=== PATIENT | female | born 1960 ===

== ENCOUNTER → 2021-01-04 13:58 | Outpatient (CLI) | payer OTHER, SELFPAY ==
--- NOTE | ~2021-01-04 | XR_ITS ---
XR lumbar spine min 4V DATE: 01/04/2021 14:35 INDICATION: Low back pain, sciatica. TECHNIQUE: AP AP, lateral, coned lateral lumbosacral views COMPARISON: None FINDINGS: There are bilateral pedicle rods and Steffee plates at L4-5, with interbody spinal fusion a t this level. Transitional fifth lumbar vertebra with sacralization and pseudoarthrosis on the right. There is severe degenerative disc disease at L2-3 and L3-4. There is associated L2-3 retrolisthesis. Diffuse osteopenia. No fracture or bone destruction of the lumbar spine is evident. The lumbar pedicl es appear intact. There is mild levoscoliosis. The sacroiliac joints are intact. IMPRESSION: Posterior and interbody spinal fusion at L4-5 Transitional L5 vertebra with sacralization pseudoarthrosis on the right Severe degenerative disc disease at L2-3 and L3-4 with associated retrolisthesis at L2-3 Levoscoliosis Osteopenia Reviewed, dictated and finalized at location B. IMPRESSION: Posterior and interbody spinal fusion at L4-5 Transitional L5 vertebra with sacralization pseudoarthrosis on the right Severe degenerative disc disease at L2-3 and L3-4 with associated retrolisthesi s at L2-3 Levoscoliosis Osteopenia
--- NOTE | ~2021-01-04 | XR_ITS ---
XR hip RT min 2V DATE: 01/04/2021 14:36 INDICATION: Right low back pain after lifting leg. Lumbago, sciatica. Right hip pain. TECHNIQUE: AP, lateral and crosstable lateral views of right hip COMPARISON: None FINDINGS: Again noted are posterior and interbody spinal fusion at L4-5, transitional lumbosacral rishi tebra sacralization on the right at L5 and severe degenerative disease at L2-3 and L3-4. No fracture or dislocation, avascular necrosis or bone destruction of the right hip. Right hip joint space appears well preserved. The pubic symphysis and sacral iliac joints are intact. IMPRESSION: Negative right hip Reviewed, dictated and finalized at location B. IMPRESSION: Negative right hip
== END ==
PROVIDERS: PCP Family Medicine; Referring Provider Family Medicine; Visit Provider Family Medicine
DX: M54.41 Lumbago with sciatica, right side (principal); M51.36 Other intervertebral disc degeneration, lumbar region; Z98.1 Arthrodesis status; M85.88 Other specified disorders of bone density and structure, other site
CPT/HCPCS: 72110; 73502

== ENCOUNTER 2021-02-28 08:43 | Outpatient (RCR) | payer OTHER, SELFPAY ==
[2021-02-28] MEDS: diphenhydrAMINE HCl CAP 25 MG CAPSULE PO (10:06)
[2021-02-28] MEDS: FAMOTIDINE 20 MG TABLET PO (10:06)
[2021-02-28] MEDS: ACETAMINOPHEN 325 MG TABLET 650 MG PO (10:06)
[2021-02-28 10:18] VITALS: BP 141/68; PULSE 80; RESP 18; TEMP 36.5; O2SAT 100
--- NOTE | 2021-02-28 10:28 | PC.NURSE ---
Patient had Pfizer vaccine - August 18 and September 08.
[2021-02-28 11:48] VITALS: BP 135/69; PULSE 71; RESP 18; TEMP 36.7; O2SAT 99
--- NOTE | 2021-03-01 13:56 | PC.NURSE ---
Called patient to follow-up regarding COVID antibody infusion. Patient states they are feeling well and denies any side effects at this time.
== END 2021-02-28 16:35 | disposition home or self-care (01) ==
LOC: AMCINF 08:43
PROVIDERS: PCP Family Medicine; Referring Provider Family Medicine; Visit Provider Internal Medicine Hematology & Oncology
DX: Z23 Encounter for immunization (principal); U07.1 COVID-19; I10 Essential (primary) hypertension
CPT/HCPCS: A9270; J7050; M0243

== ENCOUNTER → 2024-01-07 13:19 | Outpatient (CLI) | payer MEDICARE, OTHER, SELFPAY ==
--- NOTE | ~2024-01-07 | XR_ITS ---
Left Knee Technique: AP, lateral, and sunrise views were obtained. Clinical History: Pain Findings: No fracture or dislocation is seen. Osseous alignment is anatomic. There is moderate degene rative spurring at the medial joint line. There is minimal spurring of the lateral and patellofemoral compartments. Soft tissues are unremarkable. No joint effusion is seen. Impression: Degenerative spurring, as above. Reviewed, dictated and finalized at location M. Impression: Degenerative spurring, as above.
== END ==
PROVIDERS: PCP Family Medicine; Visit Provider Family Medicine
DX: M25.562 Pain in left knee (principal)
CPT/HCPCS: 73564